=== PATIENT | male | born 1945 | race Caucasian/White ===

== ENCOUNTER 2023-09-15 11:57 | Day surgery (SDC) | payer OTHER ==
[~2023-09-15] VITALS: Ht 162.6 cm; Wt 81.6 kg
[~2023-09-15 11:57] MED LIST: LIDOCAINE 2%, 20 ML MDV ONE; NORMAL SALINE 10 ML VIAL ONE; iopamidoL 50 ML VIAL IV ONE; methylPREDNISolone ACETATE 40 MG/ML ONE
[2023-09-15] MEDS ORDERED: ONDANSETRON HCL 4 MG/2 ML VIAL ONE (13:29)
[2023-09-15] MEDS: ONDANSETRON HCL 4 MG/2 ML VIAL IVP ONE (13:32)
[2023-09-15 14:10] VITALS: O2SAT 96
[2023-09-15] MEDS: INSULIN REGULAR, HUMAN 100 UNITS/ML, 3 ML VIAL SUBCUT ONE (15:43)
[2023-09-15] MEDS ORDERED: INSULIN REGULAR, HUMAN 100 UNITS/ML, 3 ML VIAL (humuLIN R) ONE (15:43)
[2023-09-15 16:10] VITALS: BP_SYST 122; PULSE 75; RESP 20
== END 2023-09-15 15:59 | disposition home or self-care (01) ==
LOC: SDS 11:57 → SMU 12:02 → SDS 15:59
PROVIDERS: ATTEND Internal Medicine
DX: M51.16 Intervertebral disc disorders with radiculopathy, lumbar region (principal); M51.9 Unspecified thoracic, thoracolumbar and lumbosacral intervertebral disc disorder; I25.10 Atherosclerotic heart disease of native coronary artery without angina pectoris; I50.22 Chronic systolic (congestive) heart failure; E11.9 Type 2 diabetes mellitus without complications; M19.90 Unspecified osteoarthritis, unspecified site; Z95.5 Presence of coronary angioplasty implant and graft; Z98.890 Other specified postprocedural states; Z79.899 Other long term (current) drug therapy
CPT/HCPCS: 62323; 82948; J1030; J2405; Q9967; J1815 ×2; 76000; J2001